=== PATIENT | female | born 1945 | race Caucasian/White ===

== ENCOUNTER → 2019-05-20 | Outpatient (CLI) | payer MEDICARE, BC | LOC: COL.RAD 05-16 08:15 → EDBD 05-16 08:15 → COL.RAD 14:05 | DX: N18.3 Chronic kidney disease, stage 3 (moderate) (principal) ==

== ENCOUNTER 2021-06-09 10:52 | Inpatient (IN) | payer MEDICARE, BC ==
[~2021-06-09] VITALS: Ht 165.1 cm; Wt 77.3 kg
[2021-06-09 11:31] LABS: BASO # 0.1 K/mm3 (0.0-0.2); BASO % 0.3 % (0.0-2.0); EOS # 0.3 K/mm3 (0.0-0.7); EOS % 1.7 % (0-4.0); GRAN # 13.1 K/mm3 (1.4-6.5); GRAN % 85.7 % (42.2-75.2); LYMPH % 6.2 % (20.0-51.0); MEAN CELL VOLUME 96 fl (80.0-100.0); MEAN CORPUSCULAR HEMOGLOBIN 29 pg (27.0-31.0); MEAN CORPUSCULAR HGB CONC 31 g/dl (33.0-37.0); MEAN PLATELET VOLUME 9.7 fl (7.4-10.4); MONO # 0.8 K/mm3 (0.1-0.6); MONO % 5.1 % (1.7-9.3); PLATELET COUNT 407 K/mm3 (130-400); RED BLOOD COUNT 3.42 M/mm3 (4.10-5.30); REDCELL DISTRIBUTION WIDTH-CV 14.6 % (11.5-14.5)
[2021-06-09 11:32] LABS: HEMATOCRIT 32.7 % (37.0-47.0)
[2021-06-09 11:37] LABS: INR 1.1 (0.8-3.0); PROTHROMBIN TIME 11.9 SECONDS (9.7-12.8)
[2021-06-09 11:53] LABS: ALBUMIN 2.9 gm/dL (3.4-4.8); ALKALINE PHOSPHATASE 122 U/L (40-150); ANION GAP 15 mmol/L (7-16); AST,SGOT 10 U/L (5-34); BILIRUBIN,TOTAL 0.4 mg/dL (0.2-1.2); BLOOD UREA NITROGEN 74 mg/dL (10-20); C-REACTIVE PROTEIN 2.44 mg/dL (0.00-0.50); CALCIUM 8.7 mg/dL (8.4-10.2); CHLORIDE 111 mmol/L (98-107); GLUCOSE 71 mg/dL (70-99); LIPASE 36 U/L (8-78); POTASSIUM 3.8 mmol/L (3.5-4.5); SODIUM 138 mmol/L (136-145); TOTAL PROTEIN 6.2 gm/dL (6.2-8.1)
[2021-06-09 11:55] LABS: ALANINE AMINOTRANSFERASE < 6 U/L (0-55)
[2021-06-09 11:56] LABS: CARBON DIOXIDE 12 mmol/L (23-31); CREATININE, serum 4.97 mg/dL (0.57-1.11)
[2021-06-09 13:08] LABS: COLLECTION METHOD IN
[2021-06-09 13:25] LABS: MUCOUS Present (NOT PRESENT); PH 5 (5-8); SQUAMOUS EPITHELIAL 0-2 /hpf (0-10); URINE APPEARANCE Hazy (CLEAR/HAZY); URINE BACTERIA Rare (NONE SEEN); URINE BILIRUBIN Positive (NEGATIVE); URINE BLOOD Negative (NEGATIVE); URINE COLOR Yellow (YELLOW); URINE GLUCOSE Negative (NEGATIVE); URINE KETONE Negative (NEGATIVE); URINE LEUKOCYTE ESTERASE Negative (NEGATIVE); URINE NITRATE Negative (NEGATIVE); URINE PROTEIN(semi-quant) 2+ (NEGATIVE); URINE RBC 0-2 /hpf (0-2); URINE UROBILINOGEN Negative (NEGATIVE)
[2021-06-09] MEDS ORDERED: REMERON30 MG PO (13:59)
[2021-06-09] MEDS ORDERED: NAMENDA5 MG PO ×2 (14:00→17:34)
[2021-06-09] MEDS ORDERED: NORVASC 10MG10 MG PO (14:01)
[2021-06-09] MEDS ORDERED: RIVASTIGMINE (14:08)
[2021-06-09] MEDS ORDERED: BUSPAR5 MG PO (14:09)
[2021-06-09 15:30] VITALS: BP 131/39; PULSE 65; TEMP 97.5
[2021-06-09] MEDS ORDERED: TYLENOL 325MG325 MG PO (17:25)
[2021-06-09] MEDS ORDERED: TYLENOL 500MG500 MG PO (17:26)
[2021-06-09] MEDS ORDERED: LIPITOR 40MG TA40 MG PO (17:27)
[2021-06-09] MEDS ORDERED: ASPIRIN 81M81 MG/TA2 PO (17:27)
[2021-06-09] MEDS ORDERED: PULMICORT0.25 MG/2 IH (17:29)
[2021-06-09] MEDS ORDERED: BYSTOLIC5 MG PO (17:29)
[2021-06-09] MEDS ORDERED: COLESTID 1GM1 G PO (17:30)
[2021-06-09] MEDS ORDERED: IPRATROPIUM BROM3 M1 IH (17:31)
[2021-06-09] MEDS ORDERED: EXELON9.5 MG/24 TD (17:32)
[2021-06-09] MEDS ORDERED: SYNTHROID0.088 MG/T PO (17:32)
[2021-06-09] MEDS ORDERED: MIRALAX PA17 GM/Dose PO (17:33)
[2021-06-09] MEDS ORDERED: ZESTRIL 20MG TA20 MG PO (17:33)
[2021-06-09] MEDS ORDERED: NYAMYC100000 U/G TP (17:36)
[2021-06-09] MEDS ORDERED: THEO-24 20200 MG/CAP PO (17:37)
[2021-06-09] MEDS ORDERED: VITAMIND3 5000 PO (17:38)
--- NOTE | 2021-06-09 18:29 | NUR ---
Patient brought to the floor by Emma - ARY. This RN and Emma completed olman-care. Patient's groin is very excoriated. Barrier ointment was applied and interdry cloth was placed... This RN called the [facility] to receive information on the patient. [facility] nurse informed this RN that the patient does not get out of bed much at the retirement and that she is very depressed. Patient has just recently became increasingly incontinent and has not been calling for assistance while incontinent. [facility] nurse stated this is abnormal for her. Patient would normally get out of bed to use the bathroom as well, but has since stopped. Patient's apparently had an affair 2yrs ago and the patient, which has been the major cause of her depression. Patient's daughter is the main person to contact. Phone number is located in the patient's chart.
[2021-06-10] VITALS (7 sets, daily range): BP systolic 123–139; BP diastolic 35–51; PULSE 66–72; TEMP 97.9–98.3
--- NOTE | 2021-06-10 02:55 | NUR ---
ALERT AND OX2. DENIES SOA, CHEST PAIN OR DIZZY. KING CATH TO DD. PT STATES SHE IS VERY TIRED AND DOES NOT WANT TO BE BOTHERED TONIGHT. 24HR URINE STARTED, IV ANTIBOTICS GIVEN. POC DISCUSSED. CALL LIGHT WI REACH.
--- NOTE | 2021-06-10 06:28 | NUR ---
DR JEFFERSON NOTIFED OF CONSULT
[2021-06-10 07:03] LABS: BASO % 0.3 % (0.0-2.0); EOS # 0.3 K/mm3 (0.0-0.7); EOS % 2.7 % (0-4.0); GRAN # 10.4 K/mm3 (1.4-6.5); GRAN % 82.5 % (42.2-75.2); LYMPH # 0.9 K/mm3 (1.2-3.4); LYMPH % 6.9 % (20.0-51.0); MEAN CELL VOLUME 95 fl (80.0-100.0); MEAN CORPUSCULAR HGB CONC 31 g/dl (33.0-37.0); MEAN PLATELET VOLUME 10.4 fl (7.4-10.4); MONO # 0.8 K/mm3 (0.1-0.6); MONO % 6.3 % (1.7-9.3); PLATELET COUNT 369 K/mm3 (130-400); RED BLOOD COUNT 3.19 M/mm3 (4.10-5.30); REDCELL DISTRIBUTION WIDTH-CV 14.6 % (11.5-14.5)
[2021-06-10 07:05] LABS: HEMATOCRIT 30.2 % (37.0-47.0); HEMOGLOBIN 9.3 g/dl (12.5-16.0); MEAN CORPUSCULAR HEMOGLOBIN 29 pg (27.0-31.0)
--- NOTE | 2021-06-10 07:13 | NUR ---
REPORT RECIEVED FROM ARY SALAZAR. NO COMPLAINTS OF PAIN OR DYSPNEA. NO SIGNS OR SYMPTOMS OF DISTRESS. CALL LIGHT WITHIN REACH. PT RESTING IN BED.
[2021-06-10 07:25] LABS: MAGNESIUM 1.6 mg/dL (1.6-2.6); PHOSPHOROUS 5.7 mg/dL (2.3-4.7); POTASSIUM 3.7 mmol/L (3.5-4.5)
[2021-06-10 07:26] LABS: CREATININE, serum 4.88 mg/dL (0.57-1.11)
--- NOTE | 2021-06-10 09:44 | NUR ---
PT ASSESSED. NO COMPLAINS OF PAIN TO BUTTOCKS. PRN TYLENOL GIVEN. NO OTHER COMPLAINTS AT THIS TIME. CALL LIGHT WITHIN REACH
[2021-06-10 13:02] LABS: SODIUM 140 mmol/L (136-145)
[2021-06-10 13:12] LABS: CREATININE, serum 4.58 mg/dL (0.57-1.11); FRACTIONAL EXCRETION OF NA+ 0.35 %
--- NOTE | 2021-06-10 13:27 | NUR ---
Sales Product Specialist met with patient to discuss discharge planning. Patient is from [facility], however became tearful when SW inquired if this is where she will return to upon discharge. Patient states her son put her in the long-term and she would prefer to live on her own. Patient reports her of 40 years cheated on her and left her a couple years ago and she still struggles with this. Patient states she just wishes she would go to sleep and not wake up as she doesn't have anything to live for. SW asked patient if she had any thoughts of ending her own life and she states she would never do this as she believes it is a mortal sin and [facility]. SW updated RN and Hospitalist of the above information. VIVIANA met with patient's daughter, Rosita (ph#[phone]) outside patient's room and Rosita confirmed patient lives at [facility] and this is where she will return upon discharge. Rosita advised patient was living in an [place] in [place], however patient's son moved to [place] so they moved patient here to [place] to be closer to [facility]. Patient sees Dr. Randle for primary care and Rosita reports Dr. Randle had ordered PT for patient as she has had more difficulty getting around lately. Patient has been utilizing a wheelchair for the last couple weeks, however normally uses a walker for ambulation. Rosita advised that she would prefer [facility] provide transport due to how weak patient has been. VIVIANA will follow up with [facility] to provide updates tomorrow. Discharge Plan: [facility]
[2021-06-11 04:24] VITALS: BP 141/44; PULSE 71; TEMP 98.5
--- NOTE | 2021-06-11 05:14 | NUR ---
PT HAD UNEVENTFUL NIGHT THIS SHIFT. I&O NOTED AND RECORDED. ALL NEEDS MET THIS SHIFT. CALL LIGHT WITHIN REACH.
[2021-06-11 06:50] LABS: MEAN CELL VOLUME 99 fl (80.0-100.0); MEAN CORPUSCULAR HGB CONC 29 g/dl (33.0-37.0); MEAN PLATELET VOLUME 10.1 fl (7.4-10.4); PLATELET COUNT 404 K/mm3 (130-400); RED BLOOD COUNT 3.27 M/mm3 (4.10-5.30)
[2021-06-11 07:00] LABS: HEMATOCRIT 32.2 % (37.0-47.0); HEMOGLOBIN 9.4 g/dl (12.5-16.0); MEAN CORPUSCULAR HEMOGLOBIN 29 pg (27.0-31.0)
[2021-06-11 07:03] LABS: CALCIUM 8.1 mg/dL (8.4-10.2); MAGNESIUM 1.6 mg/dL (1.6-2.6); POTASSIUM 3.7 mmol/L (3.5-4.5)
--- NOTE | 2021-06-11 07:13 | NUR ---
REPORT RECIEVED FROM BLOOD DONOR RECRUITER. NO COMPLAINTS OF PAIN OR DYPSNEA. NO SIGNS OR SYMPTOMS OF DISTRESS. CALL LIGHT WITHIN REACH
[2021-06-11 07:15] LABS: CREATININE, serum 3.99 mg/dL (0.57-1.11)
--- NOTE | 2021-06-11 07:18 | NUR ---
CRITICAL LABS CALLED TO [facility]. CARBON DIOXIDE AND CREAT.
[2021-06-11 07:19] VITALS: BP 151/49; PULSE 69; TEMP 98
[2021-06-11 08:08] LABS: BAND 3 % (0-10); BASOPHIL 1 % (0-2); EOSINOPHIL 5 % (0-4); LYMPHOCYTE 9 % (20.0-51.0); MYELOCYTE 1 % (0-0); NEUTROPHILS 78 % (42.0-75.2)
[2021-06-11 08:09] LABS: HYPOCHROMIA 3+; PLATELET ESTIMATE INCREASED (NORMAL)
[2021-06-11 08:19] LABS: PROTEIN, TOTAL URINE random 57 mg/dL; URINE TOTAL VOLUME - 24 HRS 550 mL/24 hr
--- NOTE | 2021-06-11 10:24 | NUR ---
PT ASSESSED. NO COMPLAINTS OF PAIN OR DYSPNEA. NO SIGNS OR SYMPTOMS OF DISTRESS. CALL LIGHT WITHIN REACH
[2021-06-11 12:56] VITALS: BP 148/52; PULSE 69; TEMP 98.3
[2021-06-11 13:09] LABS: CREATININE, serum 3.99 mg/dL (0.57-1.11); URINE TOTAL VOLUME 550 mL
--- NOTE | 2021-06-11 15:33 | NUR ---
Interventional Physiatrist spoke with Hospitalist who advised patient will need a psych screen prior to discharge. SW can contact [facility] once patient is medically cleared for discharge. VIVIANA contacted [place] at [facility] and faxed clinical updates. Brooklyn advised it is their intention to accept patient back upon discharge. SW contacted patient's daughter to provide update. When SW discussed a screening from [facility], Rosita advised patient has been to a [facility] psych facility before ([facility]) and it was not beneficial for patient. Discharge Plan: [facility]
[2021-06-11 16:00] VITALS: BP 130/50; PULSE 75; TEMP 98
[2021-06-11 20:23] VITALS: BP 161/54; PULSE 73; TEMP 97.9
--- NOTE | 2021-06-12 04:27 | NUR ---
Patient rested quietly throughout night, telemetry in use, call elie w/i margie, updated on plan of care, call elie w/i margie, denies pain, will continue to monitor.
--- NOTE | 2021-06-12 06:30 | NUR ---
REPORT RECIEVED FROM ARY TOVAR. NO COMPLAINTS OF PAIN OR DYPNEA. NO SIGNS OR SYMPTOMS OF DISTRESS. CALL LIGHT WITHIN REACH. PT SLEEPING
[2021-06-12 06:38] LABS: MEAN CELL VOLUME 95 fl (80.0-100.0); MEAN CORPUSCULAR HGB CONC 30 g/dl (33.0-37.0); PLATELET COUNT 356 K/mm3 (130-400); RED BLOOD COUNT 3.23 M/mm3 (4.10-5.30); REDCELL DISTRIBUTION WIDTH-CV 14.8 % (11.5-14.5)
[2021-06-12 06:48] LABS: HEMATOCRIT 30.6 % (37.0-47.0); HEMOGLOBIN 9.3 g/dl (12.5-16.0); MEAN CORPUSCULAR HEMOGLOBIN 29 pg (27.0-31.0)
[2021-06-12 06:57] LABS: CALCIUM 9.3 mg/dL (8.4-10.2); CREATININE, serum 2.59 mg/dL (0.57-1.11); POTASSIUM 3.6 mmol/L (3.5-4.5)
[2021-06-12 08:15] VITALS: BP 171/49; PULSE 78; TEMP 98
[2021-06-12 08:25] LABS: BAND 2 % (0-10); EOSINOPHIL 5 % (0-4); HYPOCHROMIA 3+; LYMPHOCYTE 13 % (20.0-51.0); METAMYELOCYTE 1 % (0-0); NEUTROPHILS 78 % (42.0-75.2); PLATELET ESTIMATE NORMAL (NORMAL)
--- NOTE | 2021-06-12 10:17 | NUR ---
PT ASSESSED. NO COMPLAINTS OF PAIN OR DYSPNEA. NO SIGNS OR SYMPTOMS OF DISTRESS. CALL LIGHT WITHIN REACH
[2021-06-12 12:37] VITALS: BP 165/53; PULSE 76; TEMP 98.2
[2021-06-12 16:30] VITALS: BP 171/50; PULSE 72; TEMP 98.3
--- NOTE | 2021-06-12 19:08 | NUR ---
Whitley Mcghee notified of lab result Occult Stool positive.
[2021-06-12 20:05] VITALS: BP 153/48; PULSE 72; TEMP 98
[2021-06-13] VITALS (8 sets, daily range): BP systolic 112–183; BP diastolic 49–74; PULSE 74–132; TEMP 97.5–100
[2021-06-13 06:52] LABS: MEAN CELL VOLUME 91 fl (80.0-100.0); MEAN CORPUSCULAR HGB CONC 32 g/dl (33.0-37.0); MEAN PLATELET VOLUME 10.3 fl (7.4-10.4); PLATELET COUNT 338 K/mm3 (130-400); RED BLOOD COUNT 3.23 M/mm3 (4.10-5.30); REDCELL DISTRIBUTION WIDTH-CV 14.6 % (11.5-14.5)
[2021-06-13 07:07] LABS: HEMATOCRIT 29.3 % (37.0-47.0); HEMOGLOBIN 9.3 g/dl (12.5-16.0); MEAN CORPUSCULAR HEMOGLOBIN 29 pg (27.0-31.0)
[2021-06-13 07:08] LABS: ALBUMIN 2.6 gm/dL (3.4-4.8); CALCIUM 8.8 mg/dL (8.4-10.2); CREATININE, serum 1.65 mg/dL (0.57-1.11); PHOSPHOROUS 2.2 mg/dL (2.3-4.7); POTASSIUM 3.2 mmol/L (3.5-4.5)
[2021-06-13 08:43] LABS: BAND 2 % (0-10); BASOPHIL 1 % (0-2); EOSINOPHIL 5 % (0-4); HYPOCHROMIA 2+; LYMPHOCYTE 7 % (20.0-51.0); NEUTROPHILS 79 % (42.0-75.2); PLATELET ESTIMATE NORMAL (NORMAL)
[2021-06-13 09:23] LABS: CLOSTRIDIUM DIFF A/B NEG; CLOSTRIDIUM DIFF A/B INTERP No C.diff present
[2021-06-14 03:57] VITALS: BP 123/76; PULSE 72; TEMP 98.4
[2021-06-14 06:43] LABS: BASO % 0.3 % (0.0-2.0); EOS # 0.5 K/mm3 (0.0-0.7); EOS % 5.4 % (0-4.0); GRAN % 77.5 % (42.2-75.2); LYMPH # 0.7 K/mm3 (1.2-3.4); LYMPH % 8.2 % (20.0-51.0); MEAN CELL VOLUME 90 fl (80.0-100.0); MEAN CORPUSCULAR HGB CONC 32 g/dl (33.0-37.0); MEAN PLATELET VOLUME 10.4 fl (7.4-10.4); MONO # 0.7 K/mm3 (0.1-0.6); MONO % 7.3 % (1.7-9.3); PLATELET COUNT 310 K/mm3 (130-400); RED BLOOD COUNT 3.14 M/mm3 (4.10-5.30); REDCELL DISTRIBUTION WIDTH-CV 14.7 % (11.5-14.5)
[2021-06-14 07:01] LABS: CALCIUM 8.7 mg/dL (8.4-10.2); CREATININE, serum 1.18 mg/dL (0.57-1.11); MAGNESIUM 1.4 mg/dL (1.6-2.6); POTASSIUM 3.6 mmol/L (3.5-4.5)
[2021-06-14 07:05] LABS: HEMATOCRIT 28.1 % (37.0-47.0); MEAN CORPUSCULAR HEMOGLOBIN 29 pg (27.0-31.0)
[2021-06-14 07:34] VITALS: BP 163/66; PULSE 70; TEMP 98.4
--- NOTE | 2021-06-14 10:04 | NUR ---
Patient laying in bed resting upon entering the room. Patient was incontinent of bowel, olman-care was provided by this RN and the PCT. Patient adjusted in bed and being turned q2 d/t redness on her bottom.
[2021-06-14 11:29] VITALS: BP 152/50; PULSE 66
[2021-06-14 11:31] VITALS: TEMP 98
--- NOTE | 2021-06-14 16:17 | NUR ---
Firefighting Equipment Specialist faxed clinical updates to [facility]
[2021-06-14 16:45] VITALS: BP 178/62; PULSE 71; TEMP 97.7
--- NOTE | 2021-06-14 18:31 | NUR ---
Patient incontinent of bowel twice. Patient will be starting bowel prep soon for colonoscopy tomorrow. Patient has not had any concerns/complaints today.
[2021-06-14 20:21] VITALS: BP 154/57; PULSE 75; TEMP 98.3
[2021-06-15] VITALS (11 sets, daily range): BP systolic 150–178; BP diastolic 50–67; PULSE 64–79; TEMP 97.9–98.2
--- NOTE | 2021-06-15 06:17 | NUR ---
Bowel prep throughout night, patient with watery stools, no c/o pain at this time, updated on plan of care, call delgadillo w/i margie, repositioned q 2 hours.
[2021-06-15 06:42] LABS: BASO % 0.3 % (0.0-2.0); EOS # 0.6 K/mm3 (0.0-0.7); EOS % 6.9 % (0-4.0); GRAN # 6.9 K/mm3 (1.4-6.5); GRAN % 75.1 % (42.2-75.2); LYMPH # 0.7 K/mm3 (1.2-3.4); MEAN CELL VOLUME 90 fl (80.0-100.0); MEAN CORPUSCULAR HGB CONC 32 g/dl (33.0-37.0); MEAN PLATELET VOLUME 10.1 fl (7.4-10.4); MONO # 0.8 K/mm3 (0.1-0.6); MONO % 8.3 % (1.7-9.3); PLATELET COUNT 310 K/mm3 (130-400); RED BLOOD COUNT 3.36 M/mm3 (4.10-5.30); REDCELL DISTRIBUTION WIDTH-CV 14.6 % (11.5-14.5)
[2021-06-15 06:48] LABS: HEMATOCRIT 30.1 % (37.0-47.0); HEMOGLOBIN 9.7 g/dl (12.5-16.0); MEAN CORPUSCULAR HEMOGLOBIN 29 pg (27.0-31.0)
[2021-06-15 06:53] LABS: CALCIUM 8.7 mg/dL (8.4-10.2); CREATININE, serum 1.08 mg/dL (0.57-1.11); MAGNESIUM 1.8 mg/dL (1.6-2.6); POTASSIUM 3.2 mmol/L (3.5-4.5)
--- NOTE | 2021-06-15 13:28 | NUR ---
Patient went down for her EGD/Colonoscopy at approx. 0945. Patient brought back up and post-op vitals were initiated. SBP has been >170, PRN apresoline was given. Patient was A&Ox3 and drowsy from sedatives given for the procedure. Patient requested chicken noodle soup for lunch. All oral medications administered after ensuring gag reflex was back w/ a sip of water.
--- NOTE | 2021-06-15 16:04 | NUR ---
The PA notified VIVIANA that the patient is medically cleared and ready to be screened by [facility] now. Tentative discharge tomorrow, 06/16. VIVIANA contacted and faxed the records to [facility]. Awaiting information for the Zoom meeting for the screen. VIVIANA updated the patient's RN and provided [facility] with the medical unit's phone number VIVIANA notified and faxed updates to [facility]. Brooklyn, at [facility], then contacted VIVIANA. Brooklyn reports that the patient was walking before being admitted and she feels like the patient needs SNF. She states that she will contact the patient's daughter to update her on her recommendations. VIVIANA contacted the patient's daughter, Rosita, and reviewed the above. Rosita reports that she did talk to Brooklyn and thinks the patient would benefit from SNF too. She chose 1) [facility] 2) [facility] 2) [facility]. Referrals faxed to [facility], and [facility]. Awaiting screens.
[2021-06-16 01:09] VITALS: BP 166/62; PULSE 84; TEMP 98.1
--- NOTE | 2021-06-16 01:52 | NUR ---
TELE MONITOR DC'D PER ORDER, THIS NURSE DC'D AND TRANSPORTED BOX TO TELE AT ABOUT 0120.
[2021-06-16 03:34] VITALS: BP 172/63; PULSE 71; TEMP 98.6
--- NOTE | 2021-06-16 04:13 | NUR ---
PT IV DC'D AT THIS TIME NURSE NOTED PHLEBITIS. HOSPITALIST INFORMED. PT DOES NOT REQUIRE IV PT IS DC TODAY. PT VERBALIZES AGREEMENT.
--- NOTE | 2021-06-16 05:04 | NUR ---
SBP >170 AT 0400 VITALS. PT ASYMPTOMATIC. MEDICATION ADMINISTERED ORDERED. THIS NURSE WILL F/U.
--- NOTE | 2021-06-16 05:21 | NUR ---
PT HAD UNEVENTFUL NIGHT THIS SHIFT. PT DENIES PAIN,N,V. PT CONTINUES TO HAVE BLACK LOOSE STOOLS, SBP REMAINS ELEVATED THIS SHIFT, MEDICATONS ADMINISTERED ORDERED. KING C&D. THIS NURSE CONDUCTED KING CARE. BED LINENS CHANGED. PT PROVIDED ORAL HYGIENE. ALL NEEDS MET THIS NIGHT. PT EXPRESSES NO ADDITIONAL NEEDS AT THIS TIME. CALL LIGHT WITHIN REACH. ,
[2021-06-16 06:45] LABS: BASO % 0.3 % (0.0-2.0); EOS # 0.6 K/mm3 (0.0-0.7); EOS % 6.3 % (0-4.0); GRAN # 7.5 K/mm3 (1.4-6.5); GRAN % 76.5 % (42.2-75.2); LYMPH # 0.9 K/mm3 (1.2-3.4); LYMPH % 8.7 % (20.0-51.0); MEAN CELL VOLUME 93 fl (80.0-100.0); MEAN CORPUSCULAR HGB CONC 31 g/dl (33.0-37.0); MEAN PLATELET VOLUME 10.3 fl (7.4-10.4); MONO # 0.7 K/mm3 (0.1-0.6); MONO % 7.3 % (1.7-9.3); PLATELET COUNT 277 K/mm3 (130-400); REDCELL DISTRIBUTION WIDTH-CV 14.4 % (11.5-14.5)
[2021-06-16 06:54] LABS: HEMATOCRIT 29.6 % (37.0-47.0); HEMOGLOBIN 9.3 g/dl (12.5-16.0); MEAN CORPUSCULAR HEMOGLOBIN 29 pg (27.0-31.0)
[2021-06-16 06:57] LABS: CALCIUM 9.4 mg/dL (8.4-10.2); CREATININE, serum 1.16 mg/dL (0.57-1.11); POTASSIUM 3.2 mmol/L (3.5-4.5)
[2021-06-16 07:50] VITALS: BP 158/54; PULSE 68; TEMP 97.9
--- NOTE | 2021-06-16 09:53 | NUR ---
ASSESSMENT COMPLETED FOLLOWS. PT DENIES C/O OF PAIN AT THIS TIME. ALERT AND OREINTATED OF PERSON, PLACE, DATE,. 02 ON AT 2L/NC. LUNGS CLEAR TO AUSCULTATION. REDNESS TO GROIN AND C/O PAIN WHEN TOUCDHED. POWDER APPLIED. INDWELLING CATHEDER IN PLACE WITH CLEAR PALE YELLOW OUTPUT. PROPER CATHEDER CARE ENFORCED. SCDS ON BLE.
[2021-06-16] MEDS ORDERED: LIPITOR 40MG TA40 MG PO (10:03)
[2021-06-16] MEDS ORDERED: IPRATROPIUM BROM3 M1 IH (10:03)
[2021-06-16] MEDS ORDERED: EXELON9.5 MG/24 TD (10:03)
[2021-06-16] MEDS ORDERED: BYSTOLIC5 MG PO (10:08)
[2021-06-16] MEDS ORDERED: COLESTID 1GM1 G PO (10:08)
[2021-06-16] MEDS ORDERED: ASPIRIN 81M81 MG/TA2 PO (10:09)
[2021-06-16] MEDS ORDERED: TYLENOL 325MG325 MG PO (10:10)
[2021-06-16] MEDS ORDERED: REMERON30 MG PO (10:10)
[2021-06-16] MEDS ORDERED: LEXAPRO 10MG10 MG PO (10:11)
[2021-06-16] MEDS ORDERED: PULMICORT0.25 MG/2 IH (10:11)
[2021-06-16] MEDS ORDERED: BUSPAR5 MG PO (10:11)
[2021-06-16] MEDS ORDERED: MIRALAX PA17 GM/Dose PO (10:11)
[2021-06-16] MEDS ORDERED: NAMENDA5 MG PO (10:11)
[2021-06-16] MEDS ORDERED: VITAMIND3 5000 PO (10:12)
[2021-06-16] MEDS ORDERED: SYNTHROID0.088 MG/T PO (10:12)
[2021-06-16] MEDS ORDERED: THEO-24 20200 MG/CAP PO (10:12)
[2021-06-16] MEDS ORDERED: NYAMYC100000 U/G TP (10:12)
--- NOTE | 2021-06-16 10:22 | NUR ---
The PA notified VIVIANA that the clinical team is ready to discharge the patient today. Melody, at [facility], reports that they are able to accept the patient for a skilled stay. Transportation was scheduled at 1300. VIVIANA contacted and updated the patient's daughter, Rosita. Rosita is in agreement to the plan. SW read the IM form outloud to Rosita. Rosita verbalized understanding and gave SW approval to sign the form on her behalf. VIVIANA contacted [facility] to follow up on the screen. [facility] reports that our doctor voided the screen. VIVIANA confirmed this with the PA. They would like the patient to have follow up with [facility] as an outpatient. VIVIANA contacted Dianna in admissions at [facility]. Dianna reports that they will need to talk to the patient's daughter/DPOA-HC, Rosita, to complete paperwork and to get her set up with outpatient services. She provided me with the phone number for the daughter to call. SW updated Rosita and provided her with the phone number. The patient is to discharge today, 06/16, to [facility] for a skilled stay. Transportation was scheduled at 1300, via [facility]. VIVIANA informed the patient's daughter and RN of the time. They were all agreeable to the time. No additional needs at this time.
[2021-06-16 12:35] VITALS: BP 171/59; PULSE 71; TEMP 99.2
--- NOTE | 2021-06-16 13:59 | NUR ---
Shift assessment done. Scheduled medications given. Patient A&O. Denies any pain at this time. Groin and sacrum reddened, but blanchable. Desenex and barrier cream applied. Bourgeois catheter DC'd by student, olman care complete. Balloon intact. Patient deemed fit for discharge. Attempted to call report to [facility]. No response. Patient transported from building by [facility] staff.
== END 2021-06-16 14:03 | DRG 378 ==
LOC: COL.ER 10:52 → MEDICAL 13:20
PROVIDERS: Emergency Medicine; Internal Medicine; Internal Medicine Gastroenterology; Nurse Practitioner; Physician Assistant; Student in an Organized Health Care Education/Training Program; ADMIT Internal Medicine
PROC: 0DBL8ZZ Excision of Transverse Colon, Via Natural or Artificial Opening Endoscopic (ICD-10-PCS; 2021-06-15)
PROC: 0DBN8ZZ Excision of Sigmoid Colon, Via Natural or Artificial Opening Endoscopic (ICD-10-PCS; 2021-06-15)
PROC: 0DBM8ZZ Excision of Descending Colon, Via Natural or Artificial Opening Endoscopic (ICD-10-PCS; 2021-06-15)
PROC: 0DB98ZX Excision of Duodenum, Via Natural or Artificial Opening Endoscopic, Diagnostic (ICD-10-PCS; 2021-06-15)
PROC: 0DBH8ZZ Excision of Cecum, Via Natural or Artificial Opening Endoscopic (ICD-10-PCS; principal; 2021-06-15 11:00)
PROC: 0DBE8ZZ Excision of Large Intestine, Via Natural or Artificial Opening Endoscopic (ICD-10-PCS; 2021-06-15 11:00)
DX: K92.1 Melena (principal); N17.9 Acute kidney failure, unspecified; E87.2 Acidosis; J44.9 Chronic obstructive pulmonary disease, unspecified; N18.9 Chronic kidney disease, unspecified; D64.9 Anemia, unspecified; I12.9 Hypertensive chronic kidney disease with stage 1 through stage 4 chronic kidney disease, or unspecified chronic kidney disease; F41.9 Anxiety disorder, unspecified; K44.9 Diaphragmatic hernia without obstruction or gangrene; Z66 Do not resuscitate; F01.50 Vascular dementia, unspecified severity, without behavioral disturbance, psychotic disturbance, mood disturbance, and anxiety; F32.9 Major depressive disorder, single episode, unspecified; G47.00 Insomnia, unspecified; E03.9 Hypothyroidism, unspecified; K59.00 Constipation, unspecified; N26.1 Atrophy of kidney (terminal); E83.42 Hypomagnesemia; K64.0 First degree hemorrhoids; K57.30 Diverticulosis of large intestine without perforation or abscess without bleeding; D17.9 Benign lipomatous neoplasm, unspecified; Z20.822 Contact with and (suspected) exposure to COVID-19; Z87.891 Personal history of nicotine dependence; Z79.82 Long term (current) use of aspirin; Z23 Encounter for immunization
CPT/HCPCS: 99223-AI; 99232-AI; 99233-AI; 99239; J0696; J1940; J2405; J2704; J2765; J3475; J3480; J7030; J7120